=== PATIENT | female | born 1980 | race Two or more races ===

== ENCOUNTER 2018-10-16 18:18 | Emergency (ER) | payer OTHER ==
[~2018-10-16] VITALS: Ht 167.6 cm; Wt 78.5 kg
[~2018-10-16 18:18] MED LIST: ATEN25TA PO
[2018-10-16 18:28] VITALS: BP 105/68
== END 2018-10-16 18:55 | disposition home or self-care (01) ==
LOC: ER 18:21
DX: S00.33XA Contusion of nose, initial encounter (principal); Z79.899 Other long term (current) drug therapy; W22.09XA Striking against other stationary object, initial encounter; Y93.01 Activity, walking, marching and hiking; Y92.89 Other specified places as the place of occurrence of the external cause; Y99.8 Other external cause status